=== PATIENT | female | born 1965 | race Caucasian/White ===

== ENCOUNTER 2019-02-10 18:31 | Emergency (ER) | payer MEDICAID ==
[~2019-02-10] VITALS: Ht 157.5 cm; Wt 131.0 kg
[2019-02-10 18:51] VITALS: BP 145/84
--- NOTE | 2019-02-10 19:23 | NUR ---
THIS IS A 53 Y/O FEMALE THAT ARRIVES WITH C/O OF BLADDER PAIN AND INCREASED URINARY FREQUENCY. PT REPORTS THAT IT HURTS TO PEE AND HAS LOWER ABD PAIN. PT RESTING AND AWAITING UA SAMPLE.
[2019-02-10 19:29] LABS: BASOPHILS # (AUTO) 0.02 x10^3/uL (0-0.1); BASOPHILS % (AUTO) 0 % (0-1); EOSINOPHILS # (AUTO) 0.16 x10^3/uL (0-0.4); EOSINOPHILS % (AUTO) 2 % (1-7); LYMPHOCYTES # (AUTO) 1.57 x10^3/uL (1-3.4); LYMPHOCYTES % (AUTO) 16 % (22-44); MD NO; MEAN CORPUSCULAR HEMOGLOBIN 29.3 pg (27.0-34.8); MEAN CORPUSCULAR HGB CONC 32.7 g/dL (32.4-35.8); MEAN CORPUSCULAR VOLUME 89.8 fL (80-100); MEAN PLATELET VOLUME 7.6 fL (7.4-10.4); MONOCYTES # (AUTO) 0.47 x10^3/uL (0.2-0.8); MONOCYTES % (AUTO) 5 % (2-9); NEUTROPHILS # (AUTO) 7.69 x10^3/uL (1.8-6.8); NEUTROPHILS % (AUTO) 78 % (42-75); PLATELET COUNT 306 x10^3/uL (130-400); RED BLOOD COUNT 5.07 x10^6/uL (3.82-5.3); RED CELL DISTRIBUTION WIDTH 15.7 % (9.6-15.2)
[2019-02-10 19:41] LABS: ALBUMIN 3.2 g/dL (3.4-5.0); ANION GAP 6 mmol/L (5-15); CALCIUM 9.1 mg/dL (8.5-10.1); CHLORIDE 111 mmol/L (98-107); CREATININE 0.66 mg/dL (0.55-1.02)
--- NOTE | 2019-02-10 19:53 | NUR ---
UA COLLECTED AND SENT TO LAB.
[2019-02-10 20:10] LABS: MICROSCOPIC AUTO
[2019-02-10 20:17] LABS: CULTURE INDICATED? YES
--- NOTE | 2019-02-10 20:31 | NUR ---
Patient/Caregiver given discharge instructions and they have confirmed that they understand the instructions. Patient ambulatory with steady gait.
== END 2019-02-10 20:44 | disposition home or self-care (01) ==
LOC: ED 19:36
DX: N30.00 Acute cystitis without hematuria (principal); L03.115 Cellulitis of right lower limb; L03.116 Cellulitis of left lower limb; E03.9 Hypothyroidism, unspecified; E07.9 Disorder of thyroid, unspecified; F17.200 Nicotine dependence, unspecified, uncomplicated; E66.9 Obesity, unspecified; Z68.43 Body mass index [BMI] 50.0-59.9, adult
CPT/HCPCS: 36415; 80048; 81001; 82040; 85025; 87077; 87086; 87186; 99283

== ENCOUNTER 2019-09-13 15:19 | Emergency (ER) | payer SELFPAY ==
[~2019-09-13] VITALS: Ht 157.5 cm; Wt 136.0 kg
[2019-09-13 15:48] LABS: BASOPHILS # (AUTO) 0.07 x10^3/uL (0-0.1); BASOPHILS % (AUTO) 1 % (0-1); EOSINOPHILS # (AUTO) 0.28 x10^3/uL (0-0.4); EOSINOPHILS % (AUTO) 3 % (1-7); LYMPHOCYTES # (AUTO) 3.47 x10^3/uL (1-3.4); LYMPHOCYTES % (AUTO) 31 % (22-44); MD NO; MEAN CORPUSCULAR HEMOGLOBIN 30.4 pg (27.0-34.8); MEAN CORPUSCULAR VOLUME 91.9 fL (80-100); MEAN PLATELET VOLUME 7.6 fL (7.4-10.4); MONOCYTES # (AUTO) 0.58 x10^3/uL (0.2-0.8); MONOCYTES % (AUTO) 5 % (2-9); NEUTROPHILS # (AUTO) 6.87 x10^3/uL (1.8-6.8); NEUTROPHILS % (AUTO) 61 % (42-75); PLATELET COUNT 228 x10^3/uL (130-400); RED BLOOD COUNT 4.93 x10^6/uL (3.82-5.3)
[2019-09-13 15:55] LABS: ALBUMIN 3.1 g/dL (3.4-5.0); ANION GAP 4 mmol/L (5-15); CALCIUM 8.6 mg/dL (8.5-10.1); CHLORIDE 106 mmol/L (98-107); CREATININE 0.99 mg/dL (0.55-1.02)
[2019-09-13 15:59] LABS: TROPONIN I < 0.015 ng/mL (0.000-0.045)
[2019-09-13] MEDS ORDERED: DIAZEPAM 5 MG TABLET ONE (16:04)
[2019-09-13] MEDS ORDERED: KETOROLAC 30 MG/1 ML ONE (16:04)
--- NOTE | 2019-09-13 16:09 | NUR ---
Arrived to room via squad from work, c/o right shoulder pain radiating to jaw, was "sweaty" in class, stated had given plasma last night. A&ox3 on arrival, skin intact, pwd, speech clear, ekg completed, medicated for pain
--- NOTE | 2019-09-13 16:32 | NUR ---
PT WENT TO CT
--- NOTE | 2019-09-13 16:48 | NUR ---
PT IS BACK FROM [place]. ORTHOS DONE. DR SHEA AWARE. PAYROLL ACCOUNTING SPECIALIST ON. VS STABLE. CALL LIGHT IN PLACE. WILL CONTINUE TO MONITOR.
[2019-09-13] MEDS ORDERED: BUSPAR (16:49)
[2019-09-13] MEDS ORDERED: LEVOTHYROXINE (16:49)
[2019-09-13] MEDS ORDERED: OXYBUTYIN (16:50)
[2019-09-13] MEDS ORDERED: TOPAMAX (16:50)
[2019-09-13] MEDS ORDERED: FLUOXETINE (16:50)
--- NOTE | 2019-09-13 16:51 | NUR ---
PT'S HEART RATE IS IN THE 40'S WHILE LAYING DOWN WHEN PATIENT STANDS UP PT'S HEART RATE GOES INTO THE 50'S AND 60'S. DR SHEA AWARE.
[2019-09-13] MEDS ORDERED: SODIUM CHLORIDE 0.9% 1,000ML IVBOLUS ONE (17:00)
[2019-09-13] MEDS ORDERED: KETOROLAC 30 MG/1 ML IVPush ONE (17:00)
[2019-09-13] MEDS ORDERED: DIAZEPAM 5 MG TABLET PO ONE (17:00)
--- NOTE | 2019-09-13 17:09 | NUR ---
XRAY @ BEDSIDE FOR PORT CXR
--- NOTE | 2019-09-13 17:27 | NUR ---
PT RESTING IN ROOM. FAMILY AT BEDSIDE. WASTE DUSTER ON. VS STABLE. CALL LIGHT IN PLACE. WILL CONTINUE TO MONITOR.
--- NOTE | 2019-09-13 18:18 | NUR ---
DR SHEA SPOKE WITH PATIENT. PATIENT DOES NOT WANT TO BE AN ADMIT, PT WANTS TO GO HOME. VS STABLE. PT REPORTS SHE IS FEELING BETTER. PT DISCHARGED PER DR SHEA. PT HAS A RIDE HOME FROM FAMILY.
[2019-09-13 18:30] VITALS: BP 107/70
== END 2019-09-13 18:33 | disposition home or self-care (01) ==
LOC: ED 18:26
DX: M19.91 Primary osteoarthritis, unspecified site (principal); R42 Dizziness and giddiness; E03.9 Hypothyroidism, unspecified
CPT/HCPCS: 36415; 71045; 72125; 80048; 82040; 83880; 84484; 85025; 93005; 96361; 96374; 99285; J1885; J7030

== ENCOUNTER 2019-09-21 17:22 | Inpatient (IN) | payer OTHER ==
[~2019-09-21] VITALS: Ht 157.5 cm; Wt 148.0 kg
[~2019-09-21 17:22] MED LIST: BUSPAR; FLUOXETINE; LEVOTHYROXINE; OXYBUTYIN; TOPAMAX
[2019-09-21 18:39] LABS: BASOPHILS # (AUTO) 0.11 x10^3/uL (0-0.1); BASOPHILS % (AUTO) 1 % (0-1); EOSINOPHILS # (AUTO) 0.37 x10^3/uL (0-0.4); EOSINOPHILS % (AUTO) 4 % (1-7); LYMPHOCYTES # (AUTO) 2.89 x10^3/uL (1-3.4); LYMPHOCYTES % (AUTO) 29 % (22-44); MD NO; MEAN CORPUSCULAR HEMOGLOBIN 30.2 pg (27.0-34.8); MEAN CORPUSCULAR VOLUME 91.5 fL (80-100); MONOCYTES # (AUTO) 0.61 x10^3/uL (0.2-0.8); MONOCYTES % (AUTO) 6 % (2-9); NEUTROPHILS # (AUTO) 6.09 x10^3/uL (1.8-6.8); NEUTROPHILS % (AUTO) 61 % (42-75); PLATELET COUNT 260 x10^3/uL (130-400)
[2019-09-21 18:42] LABS: ALANINE AMINOTRANSFERASE 25 U/L (12-78); ALBUMIN 3.2 g/dL (3.4-5.0); ANION GAP 4 mmol/L (5-15); CALCIUM 8.8 mg/dL (8.5-10.1); CHLORIDE 106 mmol/L (98-107); CREATININE 1.02 mg/dL (0.55-1.02)
[2019-09-21 18:46] LABS: ALKALINE PHOSPHATASE 131 U/L (45-117); BILIRUBIN,TOTAL 0.3 mg/dL (0.2-1.0); TOTAL PROTEIN 7.4 g/dL (6.4-8.2); TROPONIN I < 0.015 ng/mL (0.000-0.045)
--- NOTE | 2019-09-21 20:17 | NUR ---
PT STATED "I WAS HERE LAST THRUSDAY WITH LOW HEART RATE AND CHEST PAIN. TODAY IT'S THE SAME WITH PRESSURE TO MIDDLE OF MY CHEST THAT RADIATES TO MY FACE AND NECK ON RIGHT SIDE". PT ALSO STATED "I'M DIZZY." MONITORS APPLIED, SIDERAILS UP X2, CALL LIGHT WITHIN REACH. AWAITING ERP FOR EVAL
--- NOTE | 2019-09-21 21:11 | NUR ---
PT RESTING ON GURNEY WATCHING TV, DENIES NEEDS, CALL LIGHT WITHIN REACH. CHART UP FOR RECHECK
--- NOTE | 2019-09-21 22:13 | NUR ---
pt resting on froylan espinosa, manual b/p /64 erp updated, call light within reach. chart up for recheck
[2019-09-21] MEDS ORDERED: CEFTRIAXONE PMX 1GM/50ML 50 ML ONE (22:58)
[2019-09-21] MEDS ORDERED: AZITHROMYCIN 250 MG TABLET ONE (22:58)
[2019-09-21] MEDS ORDERED: SODIUM CHLORIDE 0.9% 1,000ML IVBOLUS ONE (23:00)
[2019-09-21] MEDS ORDERED: CEFTRIAXONE PMX 1GM/50ML 50 ML IV ONE (23:00)
[2019-09-21] MEDS ORDERED: AZITHROMYCIN 500 MG TABLET PO ONE (23:00)
[2019-09-21] MEDS ORDERED: SODIUM CHLORIDE FLUSH 10ML SYR IVF ONE (23:00)
--- NOTE | 2019-09-21 23:17 | NUR ---
PT MEDICATED PER MAR. AWAITING ROOM FOR ADMIT
[2019-09-22] VITALS (7 sets, daily range): BP systolic 80–115; BP diastolic 41–84
[2019-09-22] MEDS ORDERED: ONDANSETRON 2MG/ML, 2ML IVPush PRN
[2019-09-22 00:27] LABS: TROPONIN I < 0.015 ng/mL (0.000-0.045)
[2019-09-22] MEDS: NICOTINE 14MG/24 HR PATCH.TD24 TD SCH (01:32)
[2019-09-22] MEDS: ENOXAPARIN 30 MG/0.3 ML SQ SCH ×2 (01:32→17:54)
[2019-09-22 04:53] LABS: BASOPHILS # (AUTO) 0.06 x10^3/uL (0-0.1); BASOPHILS % (AUTO) 1 % (0-1); EOSINOPHILS # (AUTO) 0.43 x10^3/uL (0-0.4); EOSINOPHILS % (AUTO) 4 % (1-7); LYMPHOCYTES # (AUTO) 3.22 x10^3/uL (1-3.4); LYMPHOCYTES % (AUTO) 32 % (22-44); MD NO; MEAN CORPUSCULAR HEMOGLOBIN 30.6 pg (27.0-34.8); MEAN CORPUSCULAR HGB CONC 33.4 g/dL (32.4-35.8); MEAN CORPUSCULAR VOLUME 91.5 fL (80-100); MEAN PLATELET VOLUME 7.9 fL (7.4-10.4); MONOCYTES # (AUTO) 0.56 x10^3/uL (0.2-0.8); MONOCYTES % (AUTO) 6 % (2-9); NEUTROPHILS # (AUTO) 5.81 x10^3/uL (1.8-6.8); NEUTROPHILS % (AUTO) 58 % (42-75); PLATELET COUNT 238 x10^3/uL (130-400); RED CELL DISTRIBUTION WIDTH 17.3 % (9.6-15.2)
[2019-09-22 05:02] LABS: ANION GAP 2 mmol/L (5-15); CALCIUM 8.3 mg/dL (8.5-10.1); CHLORIDE 109 mmol/L (98-107)
[2019-09-22 05:08] LABS: CHOL/HDL RATIO 7.8; CHOLESTEROL, TOTAL 257 mg/dL (140-239); CREATININE 1.01 mg/dL (0.55-1.02); HDL CHOL % 13 % (28-40); HDL CHOLESTEROL (DIRECT) 33 mg/dL (40-60); LDL CHOLESTEROL,CALCULATED 157 mg/dL (54-169); LDL/HDL RATIO 4.8 (0.5-3.0); TRIGLYCERIDES 337 mg/dL (50-200); TROPONIN I < 0.015 ng/mL (0.000-0.045); VLDL CHOLESTEROL 67 mg/dL (0-25)
[2019-09-22 06:57] LABS: FREE T4 (FREE THYROXINE) 0.54 ng/dL (0.76-1.46)
[2019-09-22] MEDS ORDERED: LEVOTHYROXINE 75 MCG TABLET PO SCH (07:30)
[2019-09-22] MEDS: AZITHROMYCIN 500 MG TABLET PO SCH (09:44)
[2019-09-22] MEDS: CEFTRIAXONE PMX 2GM/50ML 50 ML IV SCH (09:45)
[2019-09-22] MEDS: LEVOTHYROXINE 200 MCG TABLET PO SCH (09:45)
[2019-09-22] MEDS ORDERED: CEFTRIAXONE PMX 1GM/50ML 50 ML IV SCH (23:00)
[2019-09-23] MEDS: NICOTINE 14MG/24 HR PATCH.TD24 TD SCH (00:14)
[2019-09-23 00:23] VITALS: BP 110/62
[2019-09-23] MEDS: ENOXAPARIN 30 MG/0.3 ML SQ SCH ×2 (05:24→17:52)
[2019-09-23] MEDS: LEVOTHYROXINE 200 MCG TABLET PO SCH (05:24)
[2019-09-23] MEDS: ACETAMINOPHEN 325 MG TABLET PO PRN ×2 (05:43→11:42)
[2019-09-23] MEDS ORDERED: LEVOTHYROXINE 100 MCG TABLET PO SCH (06:00)
[2019-09-23 06:02] LABS: BASOPHILS # (AUTO) 0.13 x10^3/uL (0-0.1); BASOPHILS % (AUTO) 2 % (0-1); EOSINOPHILS # (AUTO) 0.35 x10^3/uL (0-0.4); EOSINOPHILS % (AUTO) 4 % (1-7); LYMPHOCYTES % (AUTO) 34 % (22-44); MD NO; MEAN CORPUSCULAR HEMOGLOBIN 30.4 pg (27.0-34.8); MEAN CORPUSCULAR HGB CONC 32.9 g/dL (32.4-35.8); MEAN CORPUSCULAR VOLUME 92.3 fL (80-100); MONOCYTES # (AUTO) 0.46 x10^3/uL (0.2-0.8); MONOCYTES % (AUTO) 5 % (2-9); NEUTROPHILS # (AUTO) 4.81 x10^3/uL (1.8-6.8); NEUTROPHILS % (AUTO) 56 % (42-75); PLATELET COUNT 242 x10^3/uL (130-400); RED BLOOD COUNT 4.78 x10^6/uL (3.82-5.3); RED CELL DISTRIBUTION WIDTH 17.3 % (9.6-15.2)
[2019-09-23 06:10] LABS: ANION GAP 3 mmol/L (5-15); CALCIUM 8.4 mg/dL (8.5-10.1); CHLORIDE 108 mmol/L (98-107); CREATININE 0.92 mg/dL (0.55-1.02)
[2019-09-23] MEDS: AZITHROMYCIN 500 MG TABLET PO SCH (07:46)
[2019-09-23] MEDS: CEFTRIAXONE PMX 2GM/50ML 50 ML IV SCH (07:46)
[2019-09-23 08:03] VITALS: BP 90/57
[2019-09-23 08:51] VITALS: BP 101/62
[2019-09-23 12:06] VITALS: BP 99/63
[2019-09-23] MEDS: SODIUM CHLORIDE 0.9% 1,000 ML IV SCH (15:39)
[2019-09-23 20:17] LABS: MICROSCOPIC NOT IND
[2019-09-23 20:20] LABS: CULTURE INDICATED? NO
[2019-09-23 20:31] LABS: AMPHETAMINE SCREEN, URINE Negative (Negative); BARBITURATE SCREEN, URINE Negative (Negative); BENZODIAZEPINE SCREEN, URINE Positive (Negative); CANNABINOID SCREEN, URINE Negative (Negative); COCAINE SCREEN, URINE Negative (Negative); METHADONE SCREEN, URINE Negative (Negative); OPIATE SCREEN, URINE Negative (Negative)
[2019-09-23 20:52] VITALS: BP 95/60
[2019-09-24] MEDS: NICOTINE 14MG/24 HR PATCH.TD24 TD SCH (00:25)
[2019-09-24 00:30] VITALS: BP 99/62
[2019-09-24] MEDS: LEVOTHYROXINE 200 MCG TABLET PO SCH (05:13)
[2019-09-24] MEDS: ENOXAPARIN 30 MG/0.3 ML SQ SCH ×2 (05:14→17:30)
[2019-09-24 06:00] LABS: BASOPHILS # (AUTO) 0.04 x10^3/uL (0-0.1); BASOPHILS % (AUTO) 0 % (0-1); EOSINOPHILS # (AUTO) 0.32 x10^3/uL (0-0.4); EOSINOPHILS % (AUTO) 3 % (1-7); LYMPHOCYTES # (AUTO) 2.87 x10^3/uL (1-3.4); LYMPHOCYTES % (AUTO) 30 % (22-44); MD NO; MEAN CORPUSCULAR HEMOGLOBIN 30.9 pg (27.0-34.8); MEAN CORPUSCULAR HGB CONC 33.2 g/dL (32.4-35.8); MEAN CORPUSCULAR VOLUME 93.2 fL (80-100); MEAN PLATELET VOLUME 7.5 fL (7.4-10.4); MONOCYTES # (AUTO) 0.16 x10^3/uL (0.2-0.8); MONOCYTES % (AUTO) 2 % (2-9); NEUTROPHILS # (AUTO) 6.29 x10^3/uL (1.8-6.8); NEUTROPHILS % (AUTO) 65 % (42-75); PLATELET COUNT 297 x10^3/uL (130-400); RED BLOOD COUNT 4.76 x10^6/uL (3.82-5.3); RED CELL DISTRIBUTION WIDTH 16.9 % (9.6-15.2)
[2019-09-24 06:05] LABS: CHLORIDE 107 mmol/L (98-107)
[2019-09-24 06:41] LABS: ALANINE AMINOTRANSFERASE 25 U/L (12-78); ALBUMIN 2.9 g/dL (3.4-5.0); ALKALINE PHOSPHATASE 122 U/L (45-117); ANION GAP 4 mmol/L (5-15); BILIRUBIN,TOTAL 0.7 mg/dL (0.2-1.0); CALCIUM 8.3 mg/dL (8.5-10.1); CREATININE 0.94 mg/dL (0.55-1.02); TOTAL PROTEIN 7.2 g/dL (6.4-8.2)
[2019-09-24 06:57] LABS: FREE T4 (FREE THYROXINE) 0.66 ng/dL (0.76-1.46)
[2019-09-24 07:31] VITALS: BP 106/66
[2019-09-24 07:49] VITALS: BP 125/83
[2019-09-24 07:50] VITALS: BP 113/80
[2019-09-24] MEDS: ACETAMINOPHEN 325 MG TABLET PO PRN (08:00)
[2019-09-24] MEDS: CEFTRIAXONE PMX 2GM/50ML 50 ML IV SCH (08:00)
[2019-09-24] MEDS: AZITHROMYCIN 500 MG TABLET PO SCH (08:00)
[2019-09-24] MEDS ORDERED: REGADENOSON 0.4 MG/5 ML SYRINGE ONE (09:21)
[2019-09-24] MEDS: SODIUM CHLORIDE 0.9% 1,000 ML IV SCH (10:24)
[2019-09-24] MEDS ORDERED: FLUO40CA2 PO (10:49)
[2019-09-24] MEDS ORDERED: TOPI100T39 PO (10:49)
[2019-09-24] MEDS ORDERED: OXYB10TA26 PO (10:49)
[2019-09-24] MEDS ORDERED: FLUO20TA25 PO (10:49)
[2019-09-24] MEDS ORDERED: LEVO175T5 PO (10:49)
[2019-09-24] MEDS ORDERED: BUSP5TAB2 PO (10:49)
[2019-09-24 14:15] VITALS: BP 112/68
[2019-09-24 19:36] VITALS: BP_SYST 128; BP_SYST 129; BP_SYST 137; BP_DIAS 77; BP_DIAS 89; BP_DIAS 96
[2019-09-25] MEDS: NICOTINE 14MG/24 HR PATCH.TD24 TD SCH (00:10)
[2019-09-25] MEDS: SODIUM CHLORIDE 0.9% 1,000 ML IV SCH ×2 (00:11→13:40)
[2019-09-25 00:16] VITALS: BP 131/86
[2019-09-25] MEDS: ENOXAPARIN 30 MG/0.3 ML SQ SCH (06:05)
[2019-09-25] MEDS: LEVOTHYROXINE 200 MCG TABLET PO SCH (06:05)
[2019-09-25] MEDS: CEFTRIAXONE PMX 2GM/50ML 50 ML IV SCH (07:57)
[2019-09-25] MEDS: AZITHROMYCIN 500 MG TABLET PO SCH (08:01)
[2019-09-25 08:26] VITALS: BP 125/83
[2019-09-25 13:58] VITALS: BP 108/72
[2019-09-25] MEDS ORDERED: FLUCONAZOLE 50 MG TABLET PO ONE (15:15)
[2019-09-25] MEDS ORDERED: LEVO200T PO (15:19)
[2019-09-25] MEDS ORDERED: CEFD300C37 PO (15:19)
[2019-09-25] MEDS ORDERED: AZIT500T10 PO (15:19)
[2019-09-25] MEDS ORDERED: FLUCONAZOLE 100 MG TABLET ONE (15:27)
== END 2019-09-25 16:35 | disposition home or self-care (01) | DRG 193 ==
LOC: ED 23:03 → EDIP 23:46 → 5SO 09-22 01:14 → DCLOUNGE 09-25 16:30
PROVIDERS: ADMIT Family Medicine; ATTEND Hospitalist
DX: J18.9 Pneumonia, unspecified organism (principal); J96.01 Acute respiratory failure with hypoxia; Z68.43 Body mass index [BMI] 50.0-59.9, adult; B37.3 Candidiasis of vulva and vagina; E03.9 Hypothyroidism, unspecified; E66.01 Morbid (severe) obesity due to excess calories; E78.5 Hyperlipidemia, unspecified; F17.210 Nicotine dependence, cigarettes, uncomplicated; F31.9 Bipolar disorder, unspecified; G47.33 Obstructive sleep apnea (adult) (pediatric); I95.1 Orthostatic hypotension; M16.10 Unilateral primary osteoarthritis, unspecified hip; Z91.040 Latex allergy status; Z88.8 Allergy status to other drugs, medicaments and biological substances; Z91.018 Allergy to other foods
CPT/HCPCS: 36415; 93017; C8929; 71045; 78452; 80048; 80053; 80061; 80307; 81003; 82533; 83735; 84100; 84439; 84443; 84481; 84484; 85025; 87040; 93005; G0378; J0696; J1650; J2785; Q9957; A9502; J7030